=== PATIENT | female | born 2000 | race Caucasian/White ===

== ENCOUNTER 2022-09-08 07:00 | Outpatient (RCR) | payer OTHER, SELFPAY | END 2022-09-08 13:02 | disposition home or self-care (01) | LOC: ANHHIPT 07:00 | PROVIDERS: Referring Provider Family Medicine; Visit Provider Family Medicine | DX: M54.50 Low back pain, unspecified (principal) | CPT/HCPCS: 99199 ==

== ENCOUNTER 2023-08-21 09:07 | Outpatient (CLI) | payer OTHER, SELFPAY ==
[2023-08-21 10:21] LABS: Kit Draw Collected
== END 2023-08-21 09:08 | disposition home or self-care (01) ==
LOC: ANHGOSHLAB 09:10
DX: E28.2 Polycystic ovarian syndrome (principal)
CPT/HCPCS: 36415

== ENCOUNTER 2025-03-23 15:20 | Outpatient (CLI) | payer OTHER, SELFPAY ==
--- NOTE | ~2025-03-23 | US_ITS ---
EXAMINATION: US pelvic complete w TV, 03/23/2025 15:21 ISO COORDINATOR HISTORY: R10.32 - Left lower quadrant pain Comparison: None Technique: Red-scale and color Doppler images were obtained. Findings: Uterus: Uterus anteverted 8.8 x 3.1 x 5.3 cm. . Endometrium 4.1 mm. Right Ovary:Right ovary 5.4 x 2.9 x 4.3 cm, no adnexal mass, normal flow, simple appearing cyst 3.8 x 3.5 cm. Left Ovary: Left ovary 2.3 x 1.6 x 3.2 cm, no adnexal mass, normal flow. Free Fluid: None Impression: Probable functional right ovarian cyst. Follow-up suggested in 6 weeks to assess resolution Reviewed, dictated and finalized at location P. COORDINATOR Impression: Probable functional right ovarian cyst. Follow-up suggested in 6 weeks to asses s resolution
== END 2025-03-23 15:21 | disposition home or self-care (01) ==
LOC: MICIMG 15:20
PROVIDERS: PCP Nurse Practitioner Family; Visit Provider Nurse Practitioner Family
DX: R10.32 Left lower quadrant pain (principal); Z87.42 Personal history of other diseases of the female genital tract
CPT/HCPCS: 76830; 76856